=== PATIENT | male | born 2000 | race Caucasian/White ===

== ENCOUNTER 2024-07-23 13:53 | Emergency (ER) | payer OTHER ==
[~2024-07-23] VITALS: Ht 175.3 cm; Wt 84.1 kg
[2024-07-23 14:02] VITALS: BP 154/52; PULSE 68; RESP 18; O2SAT 98
[2024-07-23] MEDS ORDERED: NAPR-1058 PO (15:55)
[2024-07-23] MEDS ORDERED: CYCL-1 PO (15:55)
[2024-07-23 16:27] VITALS: TEMP 97.8
== END 2024-07-23 16:29 | disposition home or self-care (01) ==
LOC: ER 13:54
DX: M26.602 Left temporomandibular joint disorder, unspecified (principal)
CPT/HCPCS: 99283